=== PATIENT | female | born 1950 | race Caucasian/White ===

== ENCOUNTER 2018-02-14 08:28 | Day surgery (SDC) | payer MEDICARE ==
[~2018-02-14] VITALS: Ht 160 cm; Wt 90.9 kg
[2018-02-14] VITALS (7 sets, daily range): BP systolic 111–144; BP diastolic 58–77; PULSE 59–93; RESP 17–20; TEMP 98.2–98.4; O2SAT 92–98
[2018-02-14] MEDS ORDERED: LIDOCAINE HCL 1% 10 ML VIAL SQ ONE (08:29)
[2018-02-14] MEDS ORDERED: SERT25TA83 PO (08:50)
[2018-02-14] MEDS ORDERED: SULF1TAB23 PO (08:50)
[2018-02-14] MEDS ORDERED: PANT40TA3 PO (08:50)
[2018-02-14] MEDS ORDERED: LISI-519 PO (08:50)
[2018-02-14] MEDS ORDERED: SODIUM CHLOR 0.9% 1000 ML IV SCH (09:00)
[2018-02-14] MEDS ORDERED: SODIUM CHLORIDE 2 ML FLUSH PRN IV FLUSH (09:00)
[2018-02-14] MEDS ORDERED: SODIUM CHLORIDE 2 ML FLUSH BID IV FLUSH SCH (09:00)
[2018-02-14] MEDS ORDERED: MIDAZOLAM HCL 2 MG/2 ML VIAL ONE ×2 (11:28→11:43)
--- NOTE | 2018-02-14 13:05 | RADRPT ---
EXAM DATE/TIME: 02/14/2018 11:35 [place] COMPARISON: No previous studies available for comparison. INDICATIONS : Autoimmune hepatitis, primary biliary cholangitis. SEDATION TIME: 30 minutes BIOPSY SITE: Right flank MEDICATION(S): 1.) 3 mg midazolam (Versed) IV 2.) 150 mcg fentanyl (Sublimaze) IV DEVICE(S): 1.) 18 gauge Temno core biopsy needle MEDICAL HISTORY : Hepatitis A. Diverticulosis. Autoimmune hepatitis, primary biliary cholangitis, bladder prolapse. SURGICAL HISTORY : Cholecystectomy Hysterectomy. Bladder surgery. ENCOUNTER: Initial ACUITY: 1 day PAIN SCORE: 0/10 LOCATION: Right lobe of the liver A total of one core specimen(s) were obtained and sent to the laboratory for pathologic evaluation. PROCEDURE: 1. CT guided liver biopsy. Prior to the procedure informed consent was obtained. Any appropriate prior imaging studies were rev iewed. Using automated exposure control and adjustment of the mA and/or kV according to patient size, radiat ion dose was kept as low as reasonably achievable to obtain optimal diagnostic quality images. DICOM format image data is available electronically for review and comparison. The site was prepped in a sterile fashion. Full sterile technique was used, including cap, mask, michael rile gloves and gown and a large sterile sheet. Hand hygiene and 2% chlorhexidine and/or betadine/al cohol prep was utilized per protocol for cutaneous antisepsis. The skin and subcutaneous tissues wer e infiltrated with local anesthetic solution. With CT guidance the previously identified target was localized. Biopsy was performed using the presc ribed needle as above. Adequate hemostasis was obtained with compression at the puncture site. Follow-up CT scan reveals no hemorrhage. The patient tolerated the procedure well and there were no complications. The patient was returned to the Radiology Outpatient Unit in stable condition. CONCLUSION: Uncomplicated CT guided biopsy. Bib Astorga MD on February 14, 2018 at 13:02 Board Certified Radiologist. This report was verified electronically.
== END 2018-02-14 15:56 | disposition home or self-care (01) ==
LOC: HRAD 08:28 → HRIP 08:32 → HRAD 15:56
PROVIDERS: ATTEND Internal Medicine Gastroenterology
DX: K83.0 Cholangitis (principal); K74.3 Primary biliary cirrhosis; K75.4 Autoimmune hepatitis
CPT/HCPCS: 47000; 77012; 88307; 88313; 99152; 99153; J2250; J3010; J7030